=== PATIENT | male | born 1940 | race Caucasian/White ===

== ENCOUNTER → 2018-02-27 | Outpatient (CLI) | payer MEDICARE ==
[~2018-02-27] MED LIST: ASCO500 PO; ASPI325 PO; Aspir 8181 MG PO; CALCAVITDA PO; CLOP75 PO; Calcium + Vita1 EACH PO; Centrum Silver1 EAC1 PO; Crestor40 MG PO; EZET10 PO; FINA5 PO; HYDCHL25 PO; HYDMOR4 PO; Hydrocodone-Ap1 EA23 PO; IBUP800 PO; ISOMON20 PO; K-Dur 20 meq T20 MEQ PO; LEVFLO500 PO; Lasix40 MG PO; MAGOXI400 PO; METO50ER PO; MULVITMINF PO; NIAC500 PO; NIAC500ER PO; NITR.6SL SL; Norco 5-325 Ta1 EACH PO; PANT40 PO; POTCHL10ER PO; POTCHL20ER PO; Pepcid40 MG PO; ROSU10TA PO; SOTO80 PO; Sotalol80 MG PO
== END | disposition home or self-care (01) ==
LOC: LAB EV 11:07 → LAB SHORT 11:07
DX: R06.00 Dyspnea, unspecified (principal)
CPT/HCPCS: 83880

== ENCOUNTER 2018-02-28 09:50 | Inpatient (IN) | payer MEDICARE ==
[~2018-02-28] VITALS: Ht 180.3 cm; Wt 96.6 kg
[~2018-02-28 09:50] MED LIST changes: -CLOP75 PO; -Calcium + Vita1 EACH PO; -PANT40 PO
[2018-02-28] MEDS ORDERED: FINA5 PO (11:10)
[2018-02-28] MEDS ORDERED: CLOP75 PO (11:12)
[2018-02-28 11:21] LABS: BASOPHILS ABSOLUTE AUTO 0.07 K/mm3 (0.00-0.23); BASOPHILS PERCENT AUTO 0 % (0-2); EOSINOPHILS ABSOLUTE AUTO 0.13 K/mm3 (0.00-0.68); EOSINOPHILS PERCENT AUTO 1 % (0-6); Hematocrit 24.5 % (37.0-53.0); IMMATURE GRAN ABSOLUTE AUTO 0.26 K/mm3 (0.00-0.10); IMMATURE GRAN PERCENT AUTO 2 % (0-1); LYMPHOCYTES ABSOLUTE AUTO 2.02 K/mm3 (0.84-5.20); LYMPHOCYTES PERCENT AUTO 13 % (21-46); MONOCYTES ABSOLUTE AUTO 1.45 K/mm3 (0.16-1.47); MONOCYTES PERCENT AUTO 9 % (4-13); Mean Corpuscular HGB 33.6 pg (26.0-34.0); Mean Corpuscular HGB Conc 32.7 g/dL (31.5-36.5); Mean Corpuscular Volume 103 fL (80-100); Mean Platelet Volume 9.8 fL (9.1-12.4); NEUTROPHILS ABSOLUTE AUTO 11.66 K/mm3 (1.96-9.15); NEUTROPHILS PERCENT AUTO 75 % (41-73); NRBC ABSOLUTE 0.03 K/mm3 (0.00-0.02); NRBC Auto 0.2 /100 WBC (0.0-0.2); Platelet Count 248 K/mm3 (150-400); RDW Coefficient Variation 13.7 % (11.7-14.2); RDW Standard Deviation 49.3 fL (35.1-46.3); Red Blood Cell Count 2.38 M/mm3 (4.30-5.90); White Blood Cell Count 15.59 K/mm3 (4.00-11.30)
[2018-02-28 11:34] LABS: Alanine Aminotransfer (ALT/SGP 21 U/L (12-78); Albumin, Blood 3.3 g/dL (3.4-5.0); Albumin/Globulin Ratio 1.1 (0.8-1.8); Alk Phos 71 U/L (50-136); Anion Gap 8 mmol/L (6-16); Aspartate Aminotrans (AST/SGOT 28 U/L (12-37); Bilirubin, Total 0.5 mg/dL (0.1-1.0); Blood Urea Nitrogen 41 mg/dL (8-24); CO2, Blood 27 mmol/L (21-32); Calcium, Blood 8.5 mg/dL (8.5-10.1); Chloride, Blood 103 mmol/L (98-108); Creatinine, Blood 1.08 mg/dL (0.60-1.20); Glomerular Filtration Rate >60 (60-); Glucose, Blood 121 mg/dL (70-99); Sodium, Blood 138 mmol/L (136-145); Total Protein, Blood 6.3 g/dL (6.4-8.2); Troponin I 0.134 ng/mL (0.000-0.040)
[2018-02-28] MEDS ORDERED: SOTO80 PO (16:11)
[2018-02-28] MEDS ORDERED: Calcium + Vita1 EACH PO (16:16)
[2018-02-28 17:20] LABS: Hematocrit 24.9 % (37.0-53.0); Hemoglobin 8.3 g/dL (13.5-17.5)
[2018-03-01 01:18] LABS: BASOPHILS ABSOLUTE AUTO 0.07 K/mm3 (0.00-0.23); BASOPHILS PERCENT AUTO 0 % (0-2); EOSINOPHILS ABSOLUTE AUTO 0.13 K/mm3 (0.00-0.68); EOSINOPHILS PERCENT AUTO 1 % (0-6); Hematocrit 24.7 % (37.0-53.0); Hemoglobin 8.3 g/dL (13.5-17.5); IMMATURE GRAN ABSOLUTE AUTO 0.43 K/mm3 (0.00-0.10); IMMATURE GRAN PERCENT AUTO 3 % (0-1); LYMPHOCYTES ABSOLUTE AUTO 2.26 K/mm3 (0.84-5.20); LYMPHOCYTES PERCENT AUTO 14 % (21-46); MONOCYTES ABSOLUTE AUTO 1.83 K/mm3 (0.16-1.47); MONOCYTES PERCENT AUTO 11 % (4-13); Mean Corpuscular HGB 33.1 pg (26.0-34.0); Mean Corpuscular HGB Conc 33.6 g/dL (31.5-36.5); Mean Platelet Volume 9.5 fL (9.1-12.4); NEUTROPHILS ABSOLUTE AUTO 11.74 K/mm3 (1.96-9.15); NEUTROPHILS PERCENT AUTO 71 % (41-73); NRBC Auto 0.6 /100 WBC (0.0-0.2); Platelet Count 166 K/mm3 (150-400); RDW Coefficient Variation 15.6 % (11.7-14.2); RDW Standard Deviation 52.2 fL (35.1-46.3); Red Blood Cell Count 2.51 M/mm3 (4.30-5.90); White Blood Cell Count 16.46 K/mm3 (4.00-11.30)
[2018-03-01 01:19] LABS: Mean Corpuscular Volume 98 fL (80-100)
[2018-03-01 13:02] LABS: Hematocrit 22.1 % (37.0-53.0); Hemoglobin 7.2 g/dL (13.5-17.5)
[2018-03-01 18:41] LABS: Hemoglobin 8.5 g/dL (13.5-17.5)
[2018-03-02 01:45] LABS: Hemoglobin 8.2 g/dL (13.5-17.5)
[2018-03-02 06:55] LABS: Hematocrit 23.3 % (37.0-53.0); Hemoglobin 7.7 g/dL (13.5-17.5)
[2018-03-03 04:10] LABS: BASOPHILS ABSOLUTE AUTO 0.06 K/mm3 (0.00-0.23); BASOPHILS PERCENT AUTO 1 % (0-2); EOSINOPHILS ABSOLUTE AUTO 0.22 K/mm3 (0.00-0.68); EOSINOPHILS PERCENT AUTO 2 % (0-6); Hemoglobin 8.6 g/dL (13.5-17.5); IMMATURE GRAN ABSOLUTE AUTO 0.23 K/mm3 (0.00-0.10); IMMATURE GRAN PERCENT AUTO 2 % (0-1); LYMPHOCYTES ABSOLUTE AUTO 1.57 K/mm3 (0.84-5.20); LYMPHOCYTES PERCENT AUTO 13 % (21-46); MONOCYTES ABSOLUTE AUTO 1.48 K/mm3 (0.16-1.47); MONOCYTES PERCENT AUTO 13 % (4-13); Mean Corpuscular HGB 30.6 pg (26.0-34.0); Mean Corpuscular HGB Conc 31.9 g/dL (31.5-36.5); Mean Corpuscular Volume 96 fL (80-100); Mean Platelet Volume 9.8 fL (9.1-12.4); NEUTROPHILS ABSOLUTE AUTO 8.22 K/mm3 (1.96-9.15); NEUTROPHILS PERCENT AUTO 70 % (41-73); NRBC ABSOLUTE 0.03 K/mm3 (0.00-0.02); NRBC Auto 0.3 /100 WBC (0.0-0.2); Platelet Count 138 K/mm3 (150-400); RDW Coefficient Variation 18.8 % (11.7-14.2); RDW Standard Deviation 55.2 fL (35.1-46.3); Red Blood Cell Count 2.81 M/mm3 (4.30-5.90); White Blood Cell Count 11.78 K/mm3 (4.00-11.30)
[2018-03-03 04:28] LABS: Alanine Aminotransfer (ALT/SGP 15 U/L (12-78); Albumin, Blood 2.4 g/dL (3.4-5.0); Albumin/Globulin Ratio 1.1 (0.8-1.8); Alk Phos 59 U/L (50-136); Anion Gap 7 mmol/L (6-16); Aspartate Aminotrans (AST/SGOT 34 U/L (12-37); Bilirubin, Total 1.1 mg/dL (0.1-1.0); Blood Urea Nitrogen 20 mg/dL (8-24); Bun/Creatinine Ratio 22.4 (12.0-20.0); CHOL/HDL RATIO 4.4; CO2, Blood 27 mmol/L (21-32); Calcium, Blood 7.7 mg/dL (8.5-10.1); Chloride, Blood 112 mmol/L (98-108); Cholesterol 105 mg/dL (50-200); Creatinine, Blood 0.89 mg/dL (0.60-1.20); Globulin, Blood 2.2 g/dL (2.2-4.0); Glomerular Filtration Rate >60 (60-); Glucose, Blood 95 mg/dL (70-99); HDL Cholesterol 24 mg/dL (>39); LDL/HDL RATIO 2.3; Low Density Lipoprotein Chol 55 mg/dL (0-110); Potassium, Blood 3.8 mmol/L (3.5-5.5); Sodium, Blood 146 mmol/L (136-145); Total Protein, Blood 4.6 g/dL (6.4-8.2); Triglycerides 132 mg/dL (30-160); Very Low Density Lipoprot Chol 26 mg/dL (6-32)
[2018-03-03 14:37] LABS: Hematocrit 27.2 % (37.0-53.0); Hemoglobin 8.9 g/dL (13.5-17.5)
[2018-03-04 04:15] LABS: Hematocrit 24.9 % (37.0-53.0)
[2018-03-04 12:33] LABS: Hematocrit 29.5 % (37.0-53.0); Hemoglobin 9.5 g/dL (13.5-17.5)
[2018-03-04] MEDS ORDERED: PANT40 PO (13:22)
== END 2018-03-04 14:34 | disposition home or self-care (01) | DRG 378 ==
LOC: ER 09:50 → PCU 13:46 → MEDS 13:46 → PCU 14:53
PROVIDERS: Internal Medicine; Internal Medicine Cardiovascular Disease; Internal Medicine Gastroenterology; Physician Assistant
PROC: 5A09357 Assistance with Respiratory Ventilation, Less than 24 Consecutive Hours, Continuous Positive Airway Pressure (ICD-10-PCS; principal; 2018-02-28)
PROC: 30233N1 Transfusion of Nonautologous Red Blood Cells into Peripheral Vein, Percutaneous Approach (ICD-10-PCS; 2018-03-02 12:00)
PROC: 0W3P8ZZ Control Bleeding in Gastrointestinal Tract, Via Natural or Artificial Opening Endoscopic (ICD-10-PCS; 2018-03-02 12:00)
DX: K31.82 Dieulafoy lesion (hemorrhagic) of stomach and duodenum (principal); D62 Acute posthemorrhagic anemia; I24.8 Other forms of acute ischemic heart disease; I27.20 Pulmonary hypertension, unspecified; Z79.82 Long term (current) use of aspirin; Z79.02 Long term (current) use of antithrombotics/antiplatelets; K21.9 Gastro-esophageal reflux disease without esophagitis; Z95.2 Presence of prosthetic heart valve; Z95.1 Presence of aortocoronary bypass graft; I49.5 Sick sinus syndrome; I71.4 Abdominal aortic aneurysm, without rupture; Z87.891 Personal history of nicotine dependence; I95.9 Hypotension, unspecified; I35.0 Nonrheumatic aortic (valve) stenosis; I25.10 Atherosclerotic heart disease of native coronary artery without angina pectoris; E78.5 Hyperlipidemia, unspecified; Z95.0 Presence of cardiac pacemaker; K44.9 Diaphragmatic hernia without obstruction or gangrene; I10 Essential (primary) hypertension
CPT/HCPCS: 36415; 36430; 80053; 80061; 82272; 83880; 84484; 85014; 85018; 85025; 86850; 86900; 86901; 86923; 93005; 93010; 93306; 94762; 96374; 96376; 99285-25; C9113; J1940; J2250; J2370; J2405; J3010; J7030; J7040; J7120; P9016

== ENCOUNTER 2018-07-30 07:43 | Observation (INO) | payer MEDICARE ==
[~2018-07-30] VITALS: Ht 180.3 cm; Wt 91.8 kg
[~2018-07-30 07:43] MED LIST changes: +CLOP75 PO; +Calcium + Vita1 EACH PO; +PANT40 PO
[2018-07-30] MEDS ORDERED: EZET10 PO (08:19)
[2018-07-30] MEDS ORDERED: FURO80 PO (08:20)
[2018-07-30] MEDS ORDERED: FINA5 PO (08:20)
[2018-07-30] MEDS ORDERED: PROLIA60 MG/1 ML SC (08:20)
[2018-07-30] MEDS ORDERED: SOTO80 PO ×2 (08:20→12:26)
[2018-07-30] MEDS ORDERED: KCL 20 MEQ20 MEQ/100 IV (08:20)
[2018-07-30] MEDS ORDERED: Isosorbide Mono30 MG PO (08:21)
[2018-07-30] MEDS ORDERED: MAGCHL64ER PO (08:21)
[2018-07-30 08:32] LABS: BASOPHILS ABSOLUTE AUTO 0.09 K/mm3 (0.00-0.23); BASOPHILS PERCENT AUTO 1 % (0-2); EOSINOPHILS ABSOLUTE AUTO 0.19 K/mm3 (0.00-0.68); EOSINOPHILS PERCENT AUTO 2 % (0-6); Hematocrit 39.6 % (37.0-53.0); Hemoglobin 13.1 g/dL (13.5-17.5); IMMATURE GRAN ABSOLUTE AUTO 0.04 K/mm3 (0.00-0.10); IMMATURE GRAN PERCENT AUTO 0 % (0-1); LYMPHOCYTES ABSOLUTE AUTO 1.55 K/mm3 (0.84-5.20); LYMPHOCYTES PERCENT AUTO 14 % (21-46); MONOCYTES ABSOLUTE AUTO 1.27 K/mm3 (0.16-1.47); MONOCYTES PERCENT AUTO 11 % (4-13); Mean Corpuscular HGB 32.5 pg (26.0-34.0); Mean Corpuscular HGB Conc 33.1 g/dL (31.5-36.5); Mean Corpuscular Volume 98 fL (80-100); Mean Platelet Volume 9.1 fL (9.1-12.4); NEUTROPHILS ABSOLUTE AUTO 8.04 K/mm3 (1.96-9.15); NEUTROPHILS PERCENT AUTO 72 % (41-73); Platelet Count 221 K/mm3 (150-400); RDW Coefficient Variation 13.5 % (11.7-14.2); RDW Standard Deviation 49.3 fL (35.1-46.3); Red Blood Cell Count 4.03 M/mm3 (4.30-5.90); White Blood Cell Count 11.18 K/mm3 (4.00-11.30)
[2018-07-30 08:49] LABS: Alanine Aminotransfer (ALT/SGP 30 U/L (12-78); Albumin/Globulin Ratio 1.1 (0.8-1.8); Alk Phos 87 U/L (50-136); Anion Gap 6 mmol/L (6-16); Aspartate Aminotrans (AST/SGOT 42 U/L (12-37); Blood Urea Nitrogen 15 mg/dL (8-24); Bun/Creatinine Ratio 12.6 (12.0-20.0); CO2, Blood 28 mmol/L (21-32); Calcium, Blood 9.5 mg/dL (8.5-10.1); Chloride, Blood 106 mmol/L (98-108); Creatinine, Blood 1.19 mg/dL (0.60-1.20); Globulin, Blood 3.5 g/dL (2.2-4.0); Glomerular Filtration Rate >60 (60-); Glucose, Blood 101 mg/dL (70-99); Potassium, Blood 4.2 mmol/L (3.5-5.5); Sodium, Blood 140 mmol/L (136-145); Total Protein, Blood 7.5 g/dL (6.4-8.2)
[2018-07-30] MEDS ORDERED: POTCHL20ER PO (12:27)
[2018-07-30] MEDS ORDERED: ASCO500 PO (12:28)
[2018-07-30] MEDS ORDERED: CENTRUM SILVER1 EAC2 PO (12:29)
[2018-07-30] MEDS ORDERED: CITRACAL + D E1 EACH PO (12:42)
--- NOTE | 2018-07-30 13:37 | NUR ---
NOTIFIED DR. PRATT PT'S BP 93/47 AND PT DOES NOT HAVE ANY PARAMETERS FOR LASIX AND IMDUR. DR. PRATT SAID TO HOLD IMDUR AND LASIX IF SYSTOLIC BP LESS THAN 100. NO OTHER NEW ORDERS AT THIS TIME.
--- NOTE | 2018-07-30 16:24 | NUR ---
SHIFT SUMMARY- PT NEW ADMIT THIS AFTERNOON. PT AXO X4. DENIES CHEST PAIN. PT REPORTS MILD BACK/SHOULDER PAIN WHICH HE RATES A /10. 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 PT REPORTS MILD SOB UPON EXERTION. RESP E/U ON RA. DENIES N/V. NOTIFIED DR. PRATT OF PT'S LOW BP OF 93/47. SEE PREVIOUS NOTE. BP UP TO 98/52. SBA TO THE BATHROOM. PT'S AT BEDSIDE. NO OTHER SIGNIFICANT CHANGES THIS SHIFT.
--- NOTE | 2018-07-30 22:56 | NUR ---
[address] DECKER REPROTED CRITICAL VALUE OF TRIPONIN. ALSO REPORTED PATIENT URINE CULOR IS ORANGE/PRISCILA. RECVD ORDER FOR UA WITH CX PRN.PATIENT REMAINS VITALLY JOSETTE. ASYMPTOMATICPER TELEMETRY PATIENT IS NSR AT 80 BPM
[2018-07-30 23:31] LABS: Source, Urine Voided
[2018-07-30 23:33] LABS: Bilirubin, Urine Neg (Neg); Blood, Urine 1+ (Neg); Glucose Qualitative, Urine Neg (Neg); Ketones, Urine 3+ (Neg); Leukocyte Esterase, Urine Neg (Neg); Nitrite, Urine Neg (Neg); Protein, Urine 1+ (Neg); Specific Gravity, Urine 1.005 (1.003-1.022); Urobilinogen, Urine 1+ (Normal)
[2018-07-30 23:43] LABS: Appearance, Urine Clear (Clear); Color, Urine Yellow (P-Yellow); Red Blood Cells, Urine 0-2 /hpf (0-2); White Blood Cells, Urine Not Seen /hpf (0-5)
[2018-07-30 23:44] LABS: Bacteria Not Seen /hpf; Squamous Epithelial Cells Not Seen /hpf (Few)
--- NOTE | 2018-07-31 00:42 | NUR ---
SPOKE TO DR IBANEZ TO REPORT CRITICAL VALUE: TRIPONIN 1.45, RECEIVED ORDERS PER EMAR
[2018-07-31 06:45] LABS: BASOPHILS ABSOLUTE AUTO 0.04 K/mm3 (0.00-0.23); BASOPHILS PERCENT AUTO 0 % (0-2); EOSINOPHILS ABSOLUTE AUTO 0.11 K/mm3 (0.00-0.68); EOSINOPHILS PERCENT AUTO 1 % (0-6); Hematocrit 36.8 % (37.0-53.0); Hemoglobin 12.1 g/dL (13.5-17.5); IMMATURE GRAN ABSOLUTE AUTO 0.05 K/mm3 (0.00-0.10); IMMATURE GRAN PERCENT AUTO 0 % (0-1); LYMPHOCYTES ABSOLUTE AUTO 1.31 K/mm3 (0.84-5.20); LYMPHOCYTES PERCENT AUTO 12 % (21-46); MONOCYTES ABSOLUTE AUTO 1.52 K/mm3 (0.16-1.47); MONOCYTES PERCENT AUTO 14 % (4-13); Mean Corpuscular HGB 32.5 pg (26.0-34.0); Mean Corpuscular HGB Conc 32.9 g/dL (31.5-36.5); Mean Corpuscular Volume 99 fL (80-100); NEUTROPHILS ABSOLUTE AUTO 8.11 K/mm3 (1.96-9.15); NEUTROPHILS PERCENT AUTO 73 % (41-73); Platelet Count 165 K/mm3 (150-400); RDW Coefficient Variation 13.5 % (11.7-14.2); RDW Standard Deviation 49.1 fL (35.1-46.3); Red Blood Cell Count 3.72 M/mm3 (4.30-5.90); White Blood Cell Count 11.14 K/mm3 (4.00-11.30)
[2018-07-31 07:05] LABS: Alanine Aminotransfer (ALT/SGP 21 U/L (12-78); Albumin, Blood 3.4 g/dL (3.4-5.0); Alk Phos 78 U/L (50-136); Anion Gap 7 mmol/L (6-16); Aspartate Aminotrans (AST/SGOT 33 U/L (12-37); Bilirubin, Total 1.7 mg/dL (0.1-1.0); Blood Urea Nitrogen 18 mg/dL (8-24); Bun/Creatinine Ratio 15.5 (12.0-20.0); CO2, Blood 27 mmol/L (21-32); Calcium, Blood 8.6 mg/dL (8.5-10.1); Chloride, Blood 104 mmol/L (98-108); Creatinine, Blood 1.16 mg/dL (0.60-1.20); Globulin, Blood 3.4 g/dL (2.2-4.0); Glomerular Filtration Rate >60 (60-); Glucose, Blood 95 mg/dL (70-99); Potassium, Blood 4.6 mmol/L (3.5-5.5); Sodium, Blood 138 mmol/L (136-145); Total Protein, Blood 6.8 g/dL (6.4-8.2)
--- NOTE | 2018-07-31 07:31 | NUR ---
0025 patient had an elevated troponin 1.45 dr Cruz ordered a repeat tropnin at 0630 hrs. patient was asymptomatic and resting comfortably. telemetry confrimed that the patient was in sinus rythm at 71 bpm. pt denied pain sob or dizziness or diaphioresis. Dr Cruz ordered aspirin with the stipulation that i should check with the patient to find out why he was not taking any aspirin given his cardiac hx. this morning i was able to ask the patient about why he had no order for aspirin. because his primary discontinued the aspirin after he had a GI bleed form while taking plavix and aspirin. med was not administered. passed to day shift nurse to make sure his [facility] Dr is made aware of this information.
--- NOTE | 2018-07-31 15:06 | NUR ---
NOTIFIED DR. PRATT PT'S AM BP 91/51 AND DIURETIC HELD. PT'S BP 108/[address] PRATT SAID TO GIVE PT THEIR AM DOSE OF PO LASIX NOW. NO OTHER NEW ORDERS AT THIS TIME.
--- NOTE | 2018-07-31 15:12 | NUR ---
DR. PRATT SAID TO ORDER ECHO COMPLETE AND COLD/HEAT THERAPY. NO OTHER NEW ORDERS AT THIS TIME.
--- NOTE | 2018-07-31 16:07 | NUR ---
SHIFT SUMMARY- PT C/O L FLANK PAIN THIS PM WHICH HE RATES A 3/10. MEDS GIVEN PER EMAR. PT DENIES CHEST PAIN. PT REPORTS MILD SOB THAT COMES AND GOES. 95% ON RA. RESP E/U. DENIES N/V. 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 PT WENT FOR RENAL/BLADDER ULTRASOUND TODAY. PT TO HAVE ECHO DONE. PT'S BP 91/[address] PRATT AWARE AND REPORTS PT'S BP RUNS LOW AT BASELINE. SEE PREVIOUS NOTE. BP 100/51 THIS AFTERNOON. WILL CONTINUE TO MONITOR. SBA TO THE BATHROOM. AT BEDSIDE. NO OTHER SIGNIFICANT CHANGES THIS SHIFT.
--- NOTE | 2018-07-31 17:53 | NUR ---
RECEIVED HANDOFF FROM NURSE JOE I AM TAKING OVER CARE OF THIS PT FOR APPROXIMATELY 2 HOURS. RECEIVED HANDOFF REPORT. I HAVE STUDIED THE PT'S CHARTS. I AM ASSUMING CARE OF THIS PT UNTIL SHIFT CHANGE.
--- NOTE | 2018-08-01 06:36 | NUR ---
PER PATIENT HE CANNOT TAKE PROTONIX WITH HIS HEART CONDITIONS. REFUSED TO TAKE IT. ALSO NEEDS THE ASPIRIN D/CD IT IS NOT ADVISED AND THE LAST TIME HE TOOK THE ASPIRIN HE HAD ALONG WITH HIS PLAVIX HE DEVELOPED A GI BLLED
[2018-08-01 10:44] LABS: BASOPHILS ABSOLUTE AUTO 0.03 K/mm3 (0.00-0.23); BASOPHILS PERCENT AUTO 0 % (0-2); EOSINOPHILS ABSOLUTE AUTO 0.14 K/mm3 (0.00-0.68); EOSINOPHILS PERCENT AUTO 1 % (0-6); Hematocrit 35.6 % (37.0-53.0); Hemoglobin 11.6 g/dL (13.5-17.5); IMMATURE GRAN ABSOLUTE AUTO 0.04 K/mm3 (0.00-0.10); IMMATURE GRAN PERCENT AUTO 0 % (0-1); LYMPHOCYTES ABSOLUTE AUTO 0.83 K/mm3 (0.84-5.20); LYMPHOCYTES PERCENT AUTO 8 % (21-46); MONOCYTES ABSOLUTE AUTO 1.19 K/mm3 (0.16-1.47); MONOCYTES PERCENT AUTO 12 % (4-13); Mean Corpuscular HGB Conc 32.6 g/dL (31.5-36.5); Mean Corpuscular Volume 98 fL (80-100); Mean Platelet Volume 9.3 fL (9.1-12.4); NEUTROPHILS ABSOLUTE AUTO 8.05 K/mm3 (1.96-9.15); NEUTROPHILS PERCENT AUTO 78 % (41-73); Platelet Count 170 K/mm3 (150-400); RDW Coefficient Variation 13.5 % (11.7-14.2); RDW Standard Deviation 49.1 fL (35.1-46.3); Red Blood Cell Count 3.62 M/mm3 (4.30-5.90); White Blood Cell Count 10.28 K/mm3 (4.00-11.30)
[2018-08-01 11:00] LABS: Anion Gap 7 mmol/L (6-16); Blood Urea Nitrogen 21 mg/dL (8-24); Bun/Creatinine Ratio 17.1 (12.0-20.0); CO2, Blood 28 mmol/L (21-32); Calcium, Blood 8.3 mg/dL (8.5-10.1); Chloride, Blood 102 mmol/L (98-108); Creatinine, Blood 1.23 mg/dL (0.60-1.20); Glomerular Filtration Rate >60 (60-); Glucose, Blood 109 mg/dL (70-99); Sodium, Blood 137 mmol/L (136-145)
--- NOTE | 2018-08-01 15:15 | NUR ---
DISCHARGE NOTE PT'S IV DC'D WNL. TELEMETRY DC'D. PT GIVEN HARDCOPY AND VERBAL INSTRUCTIONS: RE DIAGNOSES, PRESCRIPTIONS, FOLLOW UP APPOINTMENTS. PT HAD NO FURTHER QUESTIONS. PERSONAL POSSESSIONS GATHERED. PT DRESSED IN PERSONAL CLOTHES. PT ESCORTED OUT BY [facility] VIA WHEELCHAIR.
== END 2018-08-01 15:15 | disposition home or self-care (01) ==
LOC: ER 07:43 → MEDS 10:40
PROVIDERS: Emergency Medicine; Internal Medicine; ADMIT Family Medicine
DX: R07.9 Chest pain, unspecified (principal); I50.33 Acute on chronic diastolic (congestive) heart failure; R77.8 Other specified abnormalities of plasma proteins; R10.9 Unspecified abdominal pain; I25.10 Atherosclerotic heart disease of native coronary artery without angina pectoris; Z95.1 Presence of aortocoronary bypass graft; Z95.0 Presence of cardiac pacemaker; Z95.3 Presence of xenogenic heart valve; Z88.1 Allergy status to other antibiotic agents; Z88.8 Allergy status to other drugs, medicaments and biological substances; Z79.899 Other long term (current) drug therapy
CPT/HCPCS: 36415; 71046; 76770; 80048; 80053; 81001; 83880; 84484; 85025; 93005; 93010; 93308; 93321; 94762; 96372; 96374; 96375; 96376; 99285-25; C9113; G0378; J1650; J2405

== ENCOUNTER 2018-08-25 05:58 | Day surgery (SDC) | payer MEDICARE ==
[~2018-08-25] VITALS: Ht 177.8 cm; Wt 88.6 kg
[~2018-08-25 05:58] MED LIST changes: +CENTRUM SILVER1 EAC2 PO; +CITRACAL + D E1 EACH PO; +FURO80 PO; +Isosorbide Mono30 MG PO; +KCL 20 MEQ20 MEQ/100 IV; +MAGCHL64ER PO; +PROLIA60 MG/1 ML SC
[2018-08-25] MEDS ORDERED: ROSU10TA PO (06:28)
[2018-08-25] MEDS ORDERED: NITR.4SL SL (06:29)
[2018-08-25] MEDS ORDERED: Lisinopril2.5 MG PO (06:29)
[2018-08-25] MEDS ORDERED: SPIR25 PO (06:30)
--- NOTE | 2018-08-25 10:13 | NUR ---
ASSUMED CARE: BEDSIDE REPORT RECEIVED FROM HC RN. PT ARRIVED TO ICU-02 AT APPROX 0900. ANGIOSEAL TO R GROIN, SITE WNL. SMALL AMNT OF SS OOZING NOTED UNDER DRESSING, SURROUDING TISSUE IS SOFT, NONTENDER TO PALPATION. BP SLIGHTLY LOW, IVF INITIATED PER ORDERS. PT STS FEELING UNSAFE TO SWALLOW PILLS R/T BEDREST & SUPINE POSITIONING. CHRONIC BACK PAIN EXACERBATED BY THIS POSITIONING ALSO, PT REQUESTS MEDS BEFORE PAIN "GETS UNBEARABLE." CALL TO DR. SALINAS PAGER & ORDERS FOR FENTANYL PLACED. WILL CONTINUE TO MONITOR & UPDATE NEEDED.
[2018-08-25] MEDS ORDERED: SOTO80 PO (10:51)
--- NOTE | 2018-08-25 13:04 | NUR ---
DR. LOPES: PROVIDER AT BEDSIDE TO SEE PT. NO NEW ORDERS AT THIS TIME.
--- NOTE | 2018-08-25 15:48 | NUR ---
FEMORAL ACCESS SITE / MANUAL PRESSURE. R FEMORAL ACCESS SITE S/O ANGIOGRAM HAS CONTINUED OOZING. NEW TYE DRESSING PLACED AT APPROX 1500. MANUAL PRESSURE HELD FOR APPROX 20 MINS TO STOP OOZING. NO BRUISING OR HEMATOMA FORMATION HAS BEEN NOTED TO SURROUNDING TISSUE SINCE ARRIVAL TO ICU. DRESSING MARKED W/ CURRENT DRAINAGE AMNT. SINCE MANUAL PRESSURE & DRESSING CHANGE, NO NEW DRAINAGE IS NOTED TO THE AREA. PT HOB UP TO 15 DEGREES, PT TOLERATING WELL. WILL CONTINUE TO MONITOR & UPDATE NEEDED.
--- NOTE | 2018-08-25 18:11 | NUR ---
SHIFT SUMMARY: NO ACUTE CHANGES SINCE PRIOR UPDATES. PT REMAINS ON BEDREST W/ HOB ELEVATED 30 DEGREES. THERE HAS BEEN NO FURTHER BLEEDING TO R FEMORAL SITE SINCE MANUAL PRESSURE HELD. LS ARE CLEAR T/O, PT ON RA W/ O2 SATS > 92%. HOME BIPAP HAS BEEN BROUGHT IN BY PT's & SETUP AT BEDSIDE BY RT BEBETO. 2L O2 BLEED-IN WHILE ON BIPAP. MONITOR SHOWS A-PACED RHYTHM AT 59 BPM, NSR WHEN NOT PACED. BP STABLE, SLIGHT HYPOTENSION THAT PT STS IS "NORMAL" FOR HIM. PT TOLERATING PO INTAKE WELL & STS GOOD APPETITE. HE IS VOIDING USING URINAL, STS SOME DIFFICULTY W/ INITIATING URINATION R/T PROSTATE ENLARGEMENT. SKIN OVERALL CDI. WILL CONTINUE TO MONITOR & REPORT OFF TO ONCOMING RN.
--- NOTE | 2018-08-25 19:15 | NUR ---
[place] of Care: Patient alert and oriented x4, sitting upright in bed, watching tv. Denies pain, discomfort, SOB, or dyspnea. Rt groin arterial access site wnl, no s/s of bleeding or hematoma noted. Peripheral Rt leg wnl, capillary refill, temp, color wnl. Peripheral IV x1 to lt AC patent and intact, infusing NS without difficulty, will saline lock when current liter is finished infusing. VSS, O2-98% on RA. Instructed to not get out of bed without assistance, call light in reach. Will continue to monitor for pain, comfort, safety.
[2018-08-26 04:06] LABS: Alanine Aminotransfer (ALT/SGP 21 U/L (12-78); Albumin, Blood 3.4 g/dL (3.4-5.0); Alk Phos 105 U/L (50-136); Anion Gap 5 mmol/L (6-16); Aspartate Aminotrans (AST/SGOT 23 U/L (12-37); Bilirubin, Total 0.7 mg/dL (0.1-1.0); Blood Urea Nitrogen 16 mg/dL (8-24); Bun/Creatinine Ratio 13.4 (12.0-20.0); CO2, Blood 27 mmol/L (21-32); Calcium, Blood 8.8 mg/dL (8.5-10.1); Chloride, Blood 104 mmol/L (98-108); Creatinine, Blood 1.19 mg/dL (0.60-1.20); Globulin, Blood 3.3 g/dL (2.2-4.0); Glomerular Filtration Rate >60 (60-); Glucose, Blood 86 mg/dL (70-99); Potassium, Blood 4.2 mmol/L (3.5-5.5); Sodium, Blood 136 mmol/L (136-145); Total Protein, Blood 6.7 g/dL (6.4-8.2)
--- NOTE | 2018-08-26 06:11 | NUR ---
Shift Summary: Patient slept well throughout shift. Continues to deny pain, discomfort, SOB or dyspnea, VSS throughout shift. Rt groin access site remains wnl, no s/s of active bleeding/hematoma. Call light in reach, makes needs known. Will continue to monitor until report to day shift RN.
[2018-08-26] MEDS ORDERED: ASPI325 PO (07:50)
--- NOTE | 2018-08-26 08:23 | NUR ---
ASSUMED CARE THIS AM. PT ALERT AND ORIENTED. REPORTS FEELING SOB- DR. DEL TORO AT BEDSIDE.PLANS FOR LASIX ADMIN AND THEN D/C TO HOME. PT. VSS THIS AM. DENIES ANY CHEST PAIN OR PRESSURE. PT. RIGHT GROIN SITE REMAINS SOFT, NO HEMATOMA. TYE DRESSING IN PLACE WITH NO FURTHER OOZING NOTED. PT. TO TAKE PT HOME THIS AM.
--- NOTE | 2018-08-26 08:26 | NUR ---
DISCHARGE PT. DISCHARGE MEDICATIONS REVIEWED WITH PT. STENT CARD GIVEN TO PT ALONG WITH ANGIOSEAL DOCUMENT AND INSTRUCTIONS FOR GROIN SITE MANAGEMENT. PT AT BEDSIDE TO ASSIST PT TO GET DRESSED, PER PT. REQUEST. ENCOURAGED TO CALL AND RETURN FOR WORSENING SYMPTOMS. PT. REQUESTED TO CALL AND MAKE HIS OWN APPOINTMENTS FOR FOLLOW UP DUE TO A BUSY CALENDER.
== END 2018-08-26 08:55 | disposition home or self-care (01) ==
LOC: MHTC 05:58 → ICUE 08:49 → MHTC 08-26 08:55
PROVIDERS: Internal Medicine Cardiovascular Disease
DX: I08.3 Combined rheumatic disorders of mitral, aortic and tricuspid valves (principal); I25.10 Atherosclerotic heart disease of native coronary artery without angina pectoris; I11.0 Hypertensive heart disease with heart failure; I50.9 Heart failure, unspecified; K21.9 Gastro-esophageal reflux disease without esophagitis; E78.00 Pure hypercholesterolemia, unspecified; Z88.8 Allergy status to other drugs, medicaments and biological substances; Z88.1 Allergy status to other antibiotic agents; Z79.899 Other long term (current) drug therapy; Z86.73 Personal history of transient ischemic attack (TIA), and cerebral infarction without residual deficits; Z87.891 Personal history of nicotine dependence
CPT/HCPCS: 36415; 80053; 85347; 93454; 93455; 99152; 99153; C1725; C1760; C1769; C1874; C1887; C1894; C9604; J1644; J1650; J1940; J2250; J3010; J7030; Q9967

== ENCOUNTER → 2018-09-01 | Outpatient (CLI) | payer MEDICARE ==
[~2018-09-01] MED LIST changes: +Lisinopril2.5 MG PO; +NITR.4SL SL; +SPIR25 PO
[2018-09-01 12:52] LABS: Appearance, Urine Clear (Clear); Bilirubin, Urine Neg (Neg); Blood, Urine 1+ (Neg); Color, Urine Yellow (P-Yellow); Glucose Qualitative, Urine Neg (Neg); Ketones, Urine Neg (Neg); Leukocyte Esterase, Urine Neg (Neg); Nitrite, Urine Neg (Neg); Protein, Urine 1+ (Neg); Specific Gravity, Urine 1.025 (1.003-1.022); Urobilinogen, Urine NORM (Normal)
[2018-09-01 13:22] LABS: Bacteria Not Seen /hpf; Calcium Oxalate Crystals Few /hpf; Red Blood Cells, Urine 0-2 /hpf (0-2); Squamous Epithelial Cells Not Seen /hpf (Few); White Blood Cells, Urine 0-2 /hpf (0-5)
[2018-09-01 13:25] LABS: Microalb/Creat Ratio UR, Rand 15.05 mg/g (0.000-30.000); Microalbumin, Random Urine 29.8 mg/L (0.000-20.000)
== END | disposition home or self-care (01) ==
LOC: LAB 12:25 → LAB SHORT 12:25
PROVIDERS: Hospitalist
DX: M54.5 Low back pain (principal)
CPT/HCPCS: 81001; 82043; 82570

== ENCOUNTER 2019-10-22 07:20 | Emergency (ER) | payer MEDICARE ==
[~2019-10-22] VITALS: Ht 180.3 cm; Wt 91.6 kg
== END 2019-10-22 08:04 | disposition home or self-care (01) ==
LOC: ER 07:20
DX: T48.9 Poisoning by, adverse effect of and underdosing of other and unspecified agents primarily acting on the respiratory system (principal); Z88.1 Allergy status to other antibiotic agents; Z88.8 Allergy status to other drugs, medicaments and biological substances; Z79.899 Other long term (current) drug therapy; Z79.82 Long term (current) use of aspirin; I11.0 Hypertensive heart disease with heart failure; I50.9 Heart failure, unspecified; I25.810 Atherosclerosis of coronary artery bypass graft(s) without angina pectoris; E78.5 Hyperlipidemia, unspecified; G47.30 Sleep apnea, unspecified; Z87.891 Personal history of nicotine dependence
CPT/HCPCS: 99282

== ENCOUNTER 2020-06-01 05:48 | Day surgery (SDC) | payer MEDICARE ==
[~2020-06-01] VITALS: Ht 180.3 cm; Wt 92.0 kg
[~2020-06-01 05:48] MED LIST changes: +FURO40 PO; +KLOR-CON 1010 ME1 PO; +TAMS.4ER PO
--- NOTE | 2020-06-01 11:41 | NUR ---
PT UP AND DRESSED. AT SIDE. DISCHARGE REVIEWED WITH PT AND WITH , BOTH VERBALIZE UNDERSTANDING OF INSTRUCTIONS. SALINE LOCK REMOVED WITH CATHETER INTACT. LEFT RADIAL SITE CLEANSED AND CLOTH DOT APPLIED TO SITE, SITE STABLE. PT TO PRIVAYE VEHICLE PER DISCHARGE VOLUNTEER.
== END 2020-06-01 11:45 | disposition home or self-care (01) ==
LOC: MHTC 05:48
DX: I25.709 Atherosclerosis of coronary artery bypass graft(s), unspecified, with unspecified angina pectoris (principal); R06.02 Shortness of breath; I38 Endocarditis, valve unspecified; I35.0 Nonrheumatic aortic (valve) stenosis; I49.5 Sick sinus syndrome; R94.39 Abnormal result of other cardiovascular function study; I71.4 Abdominal aortic aneurysm, without rupture; I10 Essential (primary) hypertension; E78.5 Hyperlipidemia, unspecified; R94.31 Abnormal electrocardiogram [ECG] [EKG]; I47.2 Ventricular tachycardia; I48.91 Unspecified atrial fibrillation; Z95.0 Presence of cardiac pacemaker; Z87.891 Personal history of nicotine dependence; Z88.1 Allergy status to other antibiotic agents; Z88.8 Allergy status to other drugs, medicaments and biological substances; Z20.822 Contact with and (suspected) exposure to COVID-19
CPT/HCPCS: 76937; 93455; 93567; 99152; 99153; C1769; C1894; J1644; J2250; J3010; J7030; J7050; Q9967

== ENCOUNTER 2023-05-02 21:20 | Emergency (ER) | payer MEDICARE ==
[~2023-05-02] VITALS: Ht 180.3 cm; Wt 90.7 kg
[2023-05-02 22:32] LABS: BASOPHILS ABSOLUTE AUTO 0.05 K/mm3 (0.00-0.23); BASOPHILS PERCENT AUTO 1 % (0-2); EOSINOPHILS ABSOLUTE AUTO 0.12 K/mm3 (0.00-0.68); EOSINOPHILS PERCENT AUTO 2 % (0-6); Hemoglobin 13.9 g/dL (13.5-17.5); IMMATURE GRAN ABSOLUTE AUTO 0.01 K/mm3 (0.00-0.10); IMMATURE GRAN PERCENT AUTO 0 % (0-1); LYMPHOCYTES ABSOLUTE AUTO 0.63 K/mm3 (0.84-5.20); LYMPHOCYTES PERCENT AUTO 11 % (21-46); MONOCYTES ABSOLUTE AUTO 1.05 K/mm3 (0.16-1.47); MONOCYTES PERCENT AUTO 18 % (4-13); Mean Corpuscular HGB 32.4 pg (26.0-34.0); Mean Corpuscular HGB Conc 33.9 g/dL (31.5-36.5); Mean Corpuscular Volume 96 fL (80-100); Mean Platelet Volume 8.9 fL (9.1-12.4); NEUTROPHILS ABSOLUTE AUTO 4.02 K/mm3 (1.96-9.15); NEUTROPHILS PERCENT AUTO 68 % (41-73); Platelet Count 153 K/mm3 (150-400); RDW Coefficient Variation 12.7 % (11.7-14.2); RDW Standard Deviation 44.7 fL (35.1-46.3); Red Blood Cell Count 4.29 M/mm3 (4.30-5.90); White Blood Cell Count 5.88 K/mm3 (4.00-11.30)
[2023-05-02 22:54] LABS: Magnesium, Blood 2.4 mg/dL (1.6-2.4)
[2023-05-02 23:00] LABS: Alanine Aminotransfer (ALT/SGP 21 U/L (12-78); Albumin, Blood 3.7 g/dL (3.4-5.0); Alk Phos 86 U/L (50-136); Anion Gap Unable to Calculate mmol/L (6-16); Aspartate Aminotrans (AST/SGOT 30 U/L (12-37); Bilirubin, Total 0.9 mg/dL (0.1-1.0); Blood Urea Nitrogen 11 mg/dL (8-24); Bun/Creatinine Ratio 12.2 (12.0-20.0); CO2, Blood 32 mmol/L (21-32); Calcium, Blood 9.5 mg/dL (8.5-10.1); Chloride, Blood 108 mmol/L (98-108); Globulin, Blood 3.8 g/dL (2.2-4.0); Glomerular Filtration Rate 86 (60-); Glucose, Blood 108 mg/dL (70-99); Potassium, Blood 3.8 mmol/L (3.5-5.5); Sodium, Blood 139 mmol/L (136-145); Total Protein, Blood 7.5 g/dL (6.4-8.2)
[2023-05-02] MEDS ORDERED: ALBU90OI INH (23:07)
[2023-05-02] MEDS ORDERED: PAXLOVID 300-11 EAC1 PO (23:07)
[2023-05-02] MEDS ORDERED: RX PP Nirmatrelvir/Ritonavir (Paxlovid) 1 CO-PACKAGE (30 Tabs) UD ONE (23:15)
[2023-05-02 23:28] VITALS: BP 129/74
[2023-05-02] MEDS ORDERED: RX Prepack Albuterol 1 PREPACK/6.7 GM INH UD ONE (23:30)
== END 2023-05-02 23:38 | disposition home or self-care (01) ==
LOC: ER 21:20
PROVIDERS: Physician Assistant
DX: U07.1 COVID-19 (principal); I11.0 Hypertensive heart disease with heart failure; I50.9 Heart failure, unspecified; I25.10 Atherosclerotic heart disease of native coronary artery without angina pectoris; G47.30 Sleep apnea, unspecified; Z87.891 Personal history of nicotine dependence
CPT/HCPCS: 71045; 80053; 83735; 83880; 85025; 93005; 93010; 99284-25; A9270

== ENCOUNTER 2024-09-12 13:04 | Emergency (ER) | payer MEDICARE ==
[~2024-09-12] VITALS: Ht 180.3 cm; Wt 90.7 kg
[~2024-09-12 13:04] MED LIST changes: +ALBU90OI INH; +ELIQUIS5 M2 PO; +EZET10; +FURO20 PO; +MAGNESIUM OXID500 MG PO; +PAXLOVID 300-11 EAC1 PO; +POTA10T PO
[2024-09-12 13:50] LABS: Source, Urine Clean Catch
[2024-09-12 14:28] LABS: BASOPHILS ABSOLUTE AUTO 0.05 K/mm3 (0.00-0.23); BASOPHILS PERCENT AUTO 1 % (0-2); EOSINOPHILS ABSOLUTE AUTO 0.18 K/mm3 (0.00-0.68); EOSINOPHILS PERCENT AUTO 2 % (0-6); Hematocrit 41.3 % (37.0-53.0); Hemoglobin 13.7 g/dL (13.5-17.5); IMMATURE GRAN ABSOLUTE AUTO 0.02 K/mm3 (0.00-0.10); IMMATURE GRAN PERCENT AUTO 0 % (0-1); LYMPHOCYTES ABSOLUTE AUTO 1.08 K/mm3 (0.84-5.20); LYMPHOCYTES PERCENT AUTO 15 % (21-46); MONOCYTES ABSOLUTE AUTO 0.93 K/mm3 (0.16-1.47); MONOCYTES PERCENT AUTO 12 % (4-13); Mean Corpuscular HGB 32.2 pg (26.0-34.0); Mean Corpuscular HGB Conc 33.2 g/dL (31.5-36.5); Mean Corpuscular Volume 97 fL (80-100); Mean Platelet Volume 8.9 fL (9.1-12.4); NEUTROPHILS ABSOLUTE AUTO 5.21 K/mm3 (1.96-9.15); NEUTROPHILS PERCENT AUTO 70 % (41-73); Platelet Count 181 K/mm3 (150-400); RDW Coefficient Variation 12.7 % (11.7-14.2); RDW Standard Deviation 45.1 fL (35.1-46.3); Red Blood Cell Count 4.25 M/mm3 (4.30-5.90); White Blood Cell Count 7.47 K/mm3 (4.00-11.30)
[2024-09-12 14:34] LABS: Albumin, Blood 3.7 g/dL (3.4-5.0); Bun/Creatinine Ratio 11.9 (12.0-20.0); Calcium, Blood 9.6 mg/dL (8.5-10.1); Creatinine, Blood 1.18 mg/dL (0.60-1.20); Globulin, Blood 3.7 g/dL (2.2-4.0); Potassium, Blood 4.2 mmol/L (3.5-5.5); Total Protein, Blood 7.4 g/dL (6.4-8.2)
[2024-09-12 14:49] LABS: Appearance, Urine Turbid (Clear); Bilirubin, Urine Neg (Neg); Blood, Urine 5+ (Neg); Color, Urine Brown (P-Yellow); Glucose Qualitative, Urine Neg (Neg); Ketones, Urine Neg (Neg); Leukocyte Esterase, Urine 1+ (Neg); Nitrite, Urine Neg (Neg); Protein, Urine 3+ (Neg); Specific Gravity, Urine 1.015 (1.003-1.022); Urobilinogen, Urine 1+ (Normal)
[2024-09-12 15:06] LABS: Bacteria Mod /hpf; Mucus Light (0-Heavy); Red Blood Cells, Urine TNTC /hpf (0-2); White Blood Cells, Urine 50-100 /hpf (0-5)
[2024-09-12 15:07] LABS: Calcium Oxalate Crystals Rare /hpf; Squamous Epithelial Cells Rare /hpf (Few)
[2024-09-12 17:45] VITALS: BP 123/78
[2024-09-12] MEDS ORDERED: HYDROCODONE-AC1 EA10 PO (18:09)
[2024-09-12] MEDS ORDERED: ONDA4ODT MM (18:09)
== END 2024-09-12 18:15 | disposition home or self-care (01) ==
LOC: ER 13:04
PROVIDERS: Student in an Organized Health Care Education/Training Program
DX: N13.2 Hydronephrosis with renal and ureteral calculous obstruction (principal); I71.43 Infrarenal abdominal aortic aneurysm, without rupture; I11.0 Hypertensive heart disease with heart failure; I50.30 Unspecified diastolic (congestive) heart failure; I25.10 Atherosclerotic heart disease of native coronary artery without angina pectoris; I25.2 Old myocardial infarction; I48.91 Unspecified atrial fibrillation; E78.5 Hyperlipidemia, unspecified; G47.33 Obstructive sleep apnea (adult) (pediatric); Z95.1 Presence of aortocoronary bypass graft; Z95.0 Presence of cardiac pacemaker; Z95.2 Presence of prosthetic heart valve; Z87.891 Personal history of nicotine dependence; Z88.8 Allergy status to other drugs, medicaments and biological substances; Z88.1 Allergy status to other antibiotic agents; Z79.02 Long term (current) use of antithrombotics/antiplatelets; Z79.01 Long term (current) use of anticoagulants; Z79.899 Other long term (current) drug therapy
CPT/HCPCS: 74177; 80053; 81001; 83690; 85025; 87086; 93005; 93010; 99284-25; Q9967